=== PATIENT | female | born 1980 | race Caucasian/White ===

== ENCOUNTER 2018-01-29 15:55 | Emergency (ER) | payer MEDICARE ==
[~2018-01-29] VITALS: Ht 152.4 cm; Wt 86.4 kg
[2018-01-29 15:57] VITALS: Ht 152.4 cm; Wt 86.4 kg
[2018-01-29] MEDS ORDERED: VENTOLIN HFA18 GM INH (15:58)
[2018-01-29] MEDS ORDERED: BAYER CHEWABLE81 MG PO (15:58)
[2018-01-29] MEDS ORDERED: LIPITOR80 MG PO (15:59)
[2018-01-29] MEDS ORDERED: TESSALON PERLE100 MG PO (15:59)
[2018-01-29] MEDS ORDERED: DEXILANT60 MG PO (15:59)
[2018-01-29] MEDS ORDERED: PROZAC40 MG PO (15:59)
[2018-01-29] MEDS ORDERED: KEPPRA500 MG (16:00)
[2018-01-29] MEDS ORDERED: FUROSEMIDE40 MG (16:00)
[2018-01-29] MEDS ORDERED: NEURONTIN600 MG PO (16:00)
[2018-01-29] MEDS ORDERED: BASAGLAR K100 UNIT/1 SC (16:00)
[2018-01-29] MEDS ORDERED: ATIVAN0.5 MG PO (16:01)
[2018-01-29] MEDS ORDERED: MAGNESIUM OXID500 MG (16:01)
[2018-01-29] MEDS ORDERED: GLUCOPHAGE1000 MG (16:01)
[2018-01-29] MEDS ORDERED: UNITHROID175 MCG (16:01)
[2018-01-29] MEDS ORDERED: K-DUR20 MEQ PO (16:02)
[2018-01-29] MEDS ORDERED: REQUIP XL2 MG PO (16:03)
[2018-01-29 16:35] LABS: APPEARANCE CLEAR (CLEAR); BILIRUBIN NEGATIVE (NEGATIVE); COLOR YELLOW (YELLOW); GLUCOSE 50 mg/dL (NEGATIVE); KETONE NEGATIVE (NEGATIVE); NITRITE NEGATIVE (NEGATIVE); PROTEIN TRACE mg/dL (NEGATIVE); UROBILINOGEN NORMAL (NORMAL)
[2018-01-29 16:38] LABS: BACTERIA FEW /hpf (NONE SEEN); EPITHELIAL CELLS 0-5 /hpf (0-5); WHITE CELLS - URINE 0-5 /hpf (0-5)
[2018-01-29 16:39] LABS: BASOPHILS 0.3 % (0-2); EOSINOPHILS 2.1 % (0-7); HEMATOCRIT 34.9 % (36.0-48.0); HEMOGLOBIN 10.6 g/dL (12-16); IMMATURE GRANULOCYTES 0.2 % (0-5); LYMPHOCYTES 20.5 % (15-50); MCH 22.5 pg (26.0-34.0); MCHC 30.4 g/dL (31.0-37.0); MCV 74.1 fL (80.0-100.0); MEAN PLATELET VOLUME 9.6 fL (7.4-10.4); MONOCYTES 7.3 % (2-11); NEUTROPHILS 69.6 % (40-80); PLATELET COUNT 690 10x3/uL (130-400); RBC 4.71 10x6/uL (4.00-5.40); RDW 18.8 % (11.5-14.5); WBC 16.6 10x3/uL (4.8-10.8)
[2018-01-29 16:52] LABS: ALBUMIN 3.3 g/dL (3.4-5.0); ANION GAP 12.4 mmol/L (8-16); BILIRUBIN - TOTAL 0.48 mg/dL (0.2-1.3); CALCIUM 9.7 mg/dL (8.5-10.1); CARBON DIOXIDE 30.4 mmol/L (21.0-32.0); CREATININE - SERUM 0.9 mg/dL (0.6-1.3); POTASSIUM - SERUM 3.8 mmol/L (3.5-5.1); PROTEIN - SERUM 7.9 g/dL (6.4-8.2)
[2018-01-29 21:10] VITALS: BP 122/72
== END 2018-01-29 21:11 ==
LOC: D.ER 15:55
PROVIDERS: Family Medicine
DX: R10.9 Unspecified abdominal pain (principal); R11.2 Nausea with vomiting, unspecified; E11.9 Type 2 diabetes mellitus without complications; E07.9 Disorder of thyroid, unspecified; I10 Essential (primary) hypertension; I50.9 Heart failure, unspecified